=== PATIENT | female | born 1980 | race Caucasian/White ===

== ENCOUNTER 2016-06-03 13:19 | Emergency (ER) | payer OTHER ==
--- NOTE | 2016-06-03 14:50 | UC ---
Respiratory Complaint HPI - HPI Summary HPI Summary: 35 year old female complaining of a nonproductive cough in the upper airway x 3 weeks. Patient states that she had sinus/nasal congestion with green mucus production and post-nasal drip x 3 weeks, symptoms fully resolved on Thursday. Patient reports SOB with exertion and wheezing with activity. - History of Current Complaint Chief Complaint: UCRespiratory Stated Complaint: COUGH Time Seen by Provider: 06/03/16 14:15 Hx Obtained From: Patient Hx Last Menstrual Period: 06/01/16 ?: No Onset/Duration: Gradual Onset Severity Initially: Moderate Severity Currently: Mild Character: Cough: Nonproductive Aggravating Factors: Exertion, Deep Breaths Alleviating Factors: Upright Position Associated Signs And Symptoms: Positive: Dyspnea, Wheezing, Nasal Congestion - Fully resolved on Thursday, Sinus Discomfort - Fully resolved on Thursday. Negative: Fever, Pleuritic Chest Pain, Hemoptysis, Dizziness, Edema - Risk Factors Pulmonary Embolism Risk Factors: Negative Cardiac Risk Factors: Negative Pseudomonas Risk Factors: Negative Tuberculosis Risk Factors: Negative - Allergies/Home Medications Allergies/Adverse Reactions: Allergies Allergy/AdvReac Type Severity Reaction Status Date / Time Aspirin Allergy Unknown Verified 07/25/14 06:41 Reaction Details Penicillins [PCN] Allergy Unknown Verified 07/25/14 06:41 Reaction Details Home Medications: Home Medications B-Complex Vitamins [Vitamin B Complex] 1 tab PO 06/03/16 [History] Biotin 1 mg PO 06/03/16 [History] PMH/Surg Hx/FS Hx/Imm Hx Previously Healthy: Yes Endocrine History Of: Denies: Diabetes, Thyroid Disease Cardiovascular History Of: Denies: Cardiac Disorders, Hypertension Respiratory History Of: Reports: Bronchitis - RECENTLY RECOVERED. States frequent bronchiolitis infections in childhood Denies: COPD, Asthma GI/ History Of: Denies: Gastroesophageal Reflux, Ulcer Neurological History Of: Denies: TIA Psychological History Of: Denies: Anxiety Cancer History Of: Denies: Lung Cancer - Surgical History Surgical History: Yes Surgery Procedure, Year, and Place: [facility] [id number]. [facility]- 2012- [place]. 2009-[facility]- [facility]OM[facility]RIAL [facility]. 1998-[facility]. gastric bypass - Family History Known Family History: Positive: None - Social History Occupation: Employed Full-time - [employer] Lives: With Family - In a home Alcohol Use: Occasionally Substance Use Type: None Smoking Status (MU): Never Smoked Tobacco Have You Smoked in the Last Year: No - Immunization History Most Recent Influenza Vaccination: 2013 Most Recent Tetanus Shot: ? UP TO DATE Most Recent Pneumonia Vaccination: HAS NOT HAD Review of Systems Constitutional: Negative Skin: Negative Eyes: Negative ENT: Nasal Discharge - Fully resolved Thursday. Was present x 3 weeks with green mucus production Respiratory: Shortness Of Breath, Cough Cardiovascular: Negative Gastrointestinal: Negative Genitourinary: Negative Motor: Negative Neurovascular: Negative Musculoskeletal: Negative Neurological: Negative Psychological: Negative All Other Systems Reviewed And Are Negative: Yes Physical Exam Triage Information Reviewed: Yes Appearance: Well-Appearing, No Pain Distress Vital Signs: Initial Vital Signs Temp 97.5 F 06/03/16 14:04 Pulse 61 06/03/16 14:04 Resp 18 06/03/16 14:04 BP 107/71 06/03/16 14:04 Pulse Ox 100 06/03/16 14:04 Vital Signs Reviewed: Yes Eye Exam: Normal Eyes: Positive: Conjunctiva Clear ENT: Positive: Hearing grossly normal, Pharynx normal, Nasal congestion - Fully resolved Thursday, Nasal drainage, TMs normal - Fluid present behind left TM. Negative: Pharyngeal erythema, TM bulging, Tonsillar swelling, Muffled/hoarse voice Dental Exam: Normal Neck exam: Normal Neck: Positive: Supple, Nontender, No Lymphadenopathy Respiratory: Positive: Chest non-tender, Lungs clear, Normal breath sounds Cardiovascular Exam: Normal Cardiovascular: Positive: RRR, No Murmur, Pulses Normal Abdominal Exam: Normal Abdomen Description: Positive: Nontender, No Organomegaly, Soft Bowel Sounds: Positive: Present Neurological Exam: Normal Neurological: Positive: Alert Psychological Exam: Normal Skin Exam: Normal Diagnostic Evaluation - Laboratory O2 Sat by Pulse Oximetry: 100 Respiratory Course/Dx - Differential Dx/Diagnosis Provider Diagnoses: Post Viral Cough Discharge - Discharge Plan Condition: Stable Disposition: HOME Prescriptions: Albuterol HFA INHALER* [Ventolin HFA Inhaler*] 1 - 2 puff INH Q4H PRN #1 mdi PRN Reason: wheeze, cough Benzonatate CAP* [Tessalon CAP*] 100 mg PO TID PRN #30 cap PRN Reason: Cough Patient Education Materials: Upper Respiratory Infection (ED) Referrals: Nel Grigsby MD [Primary Care Provider] - If Needed Additional Instructions: POST-VIRAL COUGH: A very common cause of persistent cough is called "post-viral cough syndrome." During a viral infection, the virus can irritate your bronchial tubes. Then even after the infection is over, you may continue to cough. Your cough is left over from your recent viral infection. You do not show evidence of a continuing viral infection,bronchitis or pneumonia. You do not need antibiotics at this time. It may be helpful to use inhaled cool mist, throat lozenges, cough medication or bronchial inhalers to open up your bronchial tubes. We expect you will be improved in a week or two. Call or return if you develop increasing fever, shortness of breath, chest pain , bloody sputum, or otherwise worsen. If you have not improved at all after several days, contact your primary care physician or return here.
[2016-06-03 17:17] VITALS: BP 107/71
== END 2016-06-03 14:58 | disposition home or self-care (01) ==
LOC: UCEAST 13:19
DX: R05 Cough (principal); B97.89 Other viral agents as the cause of diseases classified elsewhere; Z88.0 Allergy status to penicillin; Z88.6 Allergy status to analgesic agent; Z87.09 Personal history of other diseases of the respiratory system
CPT/HCPCS: 99212; G0463

== ENCOUNTER 2018-12-06 10:22 | Emergency (ER) | payer BC, OTHER ==
[2018-12-06 11:02] VITALS: BP 101/60
--- NOTE | 2018-12-06 11:40 | ED ---
Lower Extremity - HPI Summary HPI Summary: 38 yr old with the complaint of right calf pain. Onset of pain over the weekend. The patient road in a car for 14 hours this past weekend. She denies SOB, CP. She has an ache in the right calf; it is mild; she wants to be sure no blood clot. She does not notice swelling. - History of Current Complaint Chief Complaint: UCLowerExtremity Stated Complaint: RT LEG PAIN Time Seen by Provider: 12/06/18 10:58 Hx Last Menstrual Period: 11/18/18 Pain Intensity: 5 - Allergies/Home Medications Allergies/Adverse Reactions: Allergies Allergy/AdvReac Type Severity Reaction Status Date / Time aspirin Allergy Unknown Verified 12/06/18 11:25 Reaction Details Penicillins Allergy Unknown Verified 12/06/18 11:25 Reaction Details PMH/Surg Hx/FS Hx/Imm Hx Endocrine/Hematology History: Reports: Hx Anemia - DURING Denies: Hx Diabetes, Hx Thyroid Disease Cardiovascular History: Denies: Hx Hypertension Respiratory History: Denies: Hx Asthma, Hx Chronic Obstructive Pulmonary Disease (COPD), Hx Lung Cancer GI History: Reports: Hx Gastroesophageal Reflux Disease, Hx Hiatal Hernia - HAD SURGERY FOR, Other GI Disorders - HEARTBURN Denies: Hx Ulcer Musculoskeletal History: Reports: Hx Bursitis, Hx Tendonitis Sensory History: Denies: Hx Contacts or Glasses, Hx Hearing Aid Opthamlomology History: Denies: Hx Contacts or Glasses Neurological History: Denies: Hx Transient Ischemic Attacks (TIA) Psychiatric History: Denies: Hx Anxiety - Surgical History Surgery Procedure, Year, and Place: [id number] [place]. 2009-[facility]- [facility]OMETRIAL [facility]. 1998-[facility]. gastric bypass Hx Anesthesia Reactions: No Infectious Disease History: No Infectious Disease History: Denies: Hx Hepatitis, Hx Human Immunodeficiency Virus (HIV), Traveled Outside the [place] in Last 30 Days - Family History Known Family History: Positive: None - Social History Occupation: Employed Full-time Alcohol Use: Occasionally Substance Use Type: Reports: None Smoking Status (MU): Never Smoked Tobacco Have You Smoked in the Last Year: No Review of Systems Positive: Other - right calf pain All Other Systems Reviewed And Are Negative: Yes Physical Exam Triage Information Reviewed: Yes Vital Signs On Initial Exam: Initial Vitals Temp Pulse Resp BP Pulse Ox 98.2 F 88 16 101/60 99 12/06/18 10:58 12/06/18 10:58 12/06/18 10:58 12/06/18 10:58 12/06/18 10:58 Vital Signs Reviewed: Yes Appearance: Positive: Well-Appearing, No Pain Distress Skin: Positive: Warm, Skin Color Reflects Adequate Perfusion Head/Face: Positive: Normal Head/Face Inspection Eyes: Positive: EOMI ENT: Positive: Normal ENT inspection Respiratory/Lung Sounds: Positive: Clear to Auscultation, Breath Sounds Present Cardiovascular: Positive: RRR. Negative: Murmur Abdomen Description: Negative: Distended Musculoskeletal: Positive: Other - calf are symmetric in size. No redness, no tenderness to palpation of either calf. Popliteal areas are non tender. Thighs non tender. DP and PT pulses present and symmetric. Neurological: Positive: Sensory/Motor Intact, Alert, Oriented to Person Place, Time, CN Intact II-III, Normal Gait, Speech Normal Psychiatric: Positive: Normal Diagnostics - Vital Signs Vital Signs Temp Pulse Resp BP Pulse Ox 12/06/18 10:58 98.2 F 88 16 101/60 99 - Laboratory Lab Statement: Any lab studies that have been ordered have been reviewed, and results considered in the medical decision making process. - Ultrasound venous dop right Ultrasound Interpretation Completed By: Radiologist - DVT calf vein Lower Extremity Course/Dx - Course Course Of Treatment: 38 yr old with DVT in calf. No PMD currently. She will go to [facility] for labs, and commencement of therapy. Patient offered ambulance but wants to funeral driver her self. - Diagnoses Provider Diagnoses: Right leg DVT Discharge - Sign-Out/Discharge Documenting (check all that apply): Patient Departure All imaging exams completed and their final reports reviewed: Yes - Discharge Plan Condition: Good Disposition: HOME-RECOMMEND TO ED Patient Education Materials: Deep Vein Thrombosis (ED) Referrals: No Primary Care Phys,NOPCP [Primary Care Provider] - [facility] [place] [facility] [Outside] - 1 Day Additional Instructions: You need to go to the ER now for labs work and to begin your therapy for this blood clot in the leg. You were offered an ambulance but state that you want to drive yourself. - Billing Disposition and Condition Condition: GOOD Disposition: Home-Recommend to ED
== END 2018-12-06 12:29 | disposition home health service (06) ==
LOC: UCCORT 10:22
DX: I82.431 Acute embolism and thrombosis of right popliteal vein (principal)
CPT/HCPCS: 99212; G0463